=== PATIENT | male | born 1940 | race Caucasian/White ===

== ENCOUNTER 2020-11-13 08:26 | Outpatient (CLI) | payer MEDICARE, SELFPAY ==
--- NOTE | ~2020-11-13 | NM_ITS ---
EXAMINATION: NM bone scan whole body DATE: 11/13/2020 11:40 INDICATION: Prostate cancer TECHNIQUE: 26.0 mCi Tc-99m HDP was administered intravenously. Delayed whole-body scintigrams were o btained. COMPARISON: There are no relevant imaging studies at our institution. 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 Asymmetric likely degenerative mil d right-sided and minimal left-sided joint centered uptake at the acromioclavicular joints. Additiona l mild likely degenerative joint centered uptake at the bilateral sternoclavicular joints, at the low er lumbar facet joints and bilateral mid feet. Small focus of likely extravasated soft tissue activit y at the right antecubital fossa. Mild linear activity extending craniocaudally along the sternum wit h a couple foci of mild uptake at the left and right sides of the inferior sternum. Pattern suggests a prior median sternotomy. Correlate with surgical history. No other suspicious foci of abnormal bone uptake to suggest metastatic disease. IMPRESSION: 1. No lesion suspicious for osseous metastatic disease. 2. Mild sternal uptake with primarily linear craniocaudal orientation suggesting prior median sternot carrie. Correlate with surgical history. Reviewed, dictated and finalized at location A. IMPRESSION: 1. No lesion suspicious for osseous metastatic disease. 2. Mild sternal uptake with primarily linear craniocaudal orientation suggestin g prior median sternotomy. Correlate with surgical history.
== END 2020-11-13 08:27 | disposition home or self-care (01) ==
LOC: ANHIMG 08:30
PROVIDERS: PCP Nurse Practitioner Family; Visit Provider Urology
DX: C61 Malignant neoplasm of prostate (principal)
CPT/HCPCS: 78306; A9561

== ENCOUNTER 2021-01-20 08:16 | Outpatient (CLI) | payer MEDICARE, SELFPAY ==
--- NOTE | ~2021-01-20 | MR_ITS ---
EXAMINATION: MR pelvis wo/w con INDICATION: Malignant neoplasm of the prostate TECHNIQUE: 3D Axial T2 Cube, Axial 2D FIESTA, Coronal SSFSE ARC, Axial and Coronal 2D FIESTA FatSat, Axial T2 FS, Axial SSFSE BH ARC, Axial 3D DualEcho BH, Axial SSFSE-IR Chandu, Axial DWI b=600, pre and d ynamic postcontrast Axial LAVA ARC, WATER:POST Cor LAVA-FLEX COMPARISON: None available CONTRAST: Multihance, 16 cc FINDINGS: There is diffuse heterogeneous T2 signal intensity involving the peripheral and transitiona l zones of the prostate. Areas of increased T1 signal intensity on noncontrast images likely reflect biopsy change. There are no pathologically enlarged pelvic lymph nodes. Bilateral inguinal hernias co ntaining fat are noted. The visualized osseous structures are unremarkable. Mild wall thickening of t he urinary bladder likely reflects chronic outlet obstruction. Spacer material is noted between the r ectum and prostate. IMPRESSION: Enlarged 1. Heterogeneous enlargement of the prostate with biopsy change but no evidence of metastatic disease . Reviewed, dictated and finalized at location B. IMPRESSION: Enlarged 1. Heterogeneous enlargement of the prostate with biopsy change but no evidence of metastatic disease.
[2021-01-20 09:03] LABS: Estimated Glomerular Filt Rate > 60
== END 2021-01-20 08:17 | disposition home or self-care (01) ==
PROVIDERS: Visit Provider Radiology Radiation Oncology
DX: C61 Malignant neoplasm of prostate (principal)
CPT/HCPCS: 72197; A9577